=== PATIENT | female | born 1995 | race Caucasian/White ===

== ENCOUNTER 2023-07-30 17:48 | Outpatient (CLI) | payer MEDICAID, SELFPAY ==
[2023-07-30 16:52] LABS: HCG Quant, Pregnancy 10 mIU/mL (1-3)
== END 2023-07-30 17:49 | disposition home or self-care (01) ==
LOC: LBO 17:49
PROVIDERS: Visit Provider Obstetrics & Gynecology
DX: Z32.01 Encounter for pregnancy test, result positive (principal)
CPT/HCPCS: 36415; 84702

== ENCOUNTER 2024-02-19 10:05 | Day surgery (SDC) | payer MEDICAID, SELFPAY ==
[2024-02-19] VITALS (28 sets, daily range): BP systolic 98–135; BP diastolic 46–86; PULSE 42–90; RESP 10–18; TEMP 36.2–36.5; O2SAT 94–100; BMI 31.8
--- NOTE | 2024-02-19 07:15 | W.PM.OP ---
Date of service: 02/19/24 Time of Service: 13:00 Operative Note Operative Note DATE OF PROCEDURE: 02/19/24 PRE-OP DIAGNOSIS: Left knee 1. Complex lateral meniscus tear POST-OP DIAGNOSIS: same PROCEDURE: Left knee 1. Partial lateral meniscectomy of discoid lateral meniscus, CPT #48727 SURGEON: Fredo Snider VENDING MACHINE COLLECTOR: None None ANESTHESIA TYPE: Local By Surgeon Refer to Anesthesia Record ESTIMATED BLOOD LOSS: 2 PATHOLOGY: none sent TOURNIQUET TIME: 0 COMPLICATIONS: None Patient was transported to: PACU Patient's condition: stable Indications: Please see complete medical record for details. Findings: Exam under anesthesia: Full range of motion, stable varus and valgus, no increased translation to anterior drawer or David, but somewhat abnormal feeling David exam. Arthroscopic findings: Moderate suprapatellar and anterior to lateral synovitis. Intact articular cartilage. Intact ACL. Intact medial compartment medial meniscus. Large displaced complex discoid lateral meniscus tear. Procedure Description: In the operating room, general anesthesia was induced. The patient was positioned supine on the operating room table. All bony prominences were well-padded. Preoperative antibiotics were administered. The knee was prepped and draped in the usual sterile fashion. The correct patient, procedure, and side of the procedure were all verified prior to incision. Exam under anesthesia was performed. 10 cc of 0.25% bupivacaine containing epinephrine was infiltrated about the planned anteromedial and anterolateral knee arthroscopy portals. An additional 10 cc was infiltrated about the medial and lateral compartments. The portals were established and a complete diagnostic arthroscopy was performed with relevant findings detailed above. The mechanical shaver was used to remove some inflamed synovium from the suprapatellar, patellofemoral, and anterior intercondylar spaces. The lateral meniscus was carefully inspected. It was highly abnormal and clearly of discoid pathology. Appeared to be subacute and could not be reduced from the intercondylar area much into the lateral compartment. There was abnormal thickening, intrasubstance tearing degeneration in the displaced portion of meniscus as well as obvious tearing separately more peripherally about the posterior horn and body. Various graspers were used to attempt to reduce some of the meniscus for potential repair, but it was highly abnormal and the majority thickened portion was removed in piecemeal using meniscal biters. Once a more normal-appearing meniscal C?shaped contour was established, the meniscus was again probed and reductions attempted, but the significant tearing more peripherally in the abnormal meniscal tissue was not really amenable to repair. The complex both horizontal and vertical component near the posterior horn body junction was rather peripheral and extend to about the capsular red zone. Carefully and sequentially the abnormal discoid meniscus as well as the established meniscal remnant were debrided of abnormal redundant and torn meniscal tissue to a more appropriate and stable margin. It was carefully contoured working alternating and viewing between the anterior medial and anterolateral portals as well as using the mechanical and torpedo jessie. The remnant was probed and stable margin, stable root, and no additional tearing. Care was taken to preserve as much meniscus tissue as reasonable. Under direct arthroscopic visualization an 18-gauge needle was passed into the knee from superolateral into the suprapatellar pouch. The knee was copiously irrigated with arthroscopic fluid until there was a clear effluent before being drained of all fluid. The anteromedial and anterolateral portals were closed in 3-0 Monocryl in a buried interrupted fashion. An additional 10 cc of 0.2 FiberTape bupivacaine containing epinephrine was infiltrated about the lateral knee. Mastisol, Steri-Strips, and 4 x 4 gauze were applied over the incisions. The knee was then wrapped gently with an OLEGARIO comressive bandage. The patient awoke from anesthesia without complication and was transferred to the recovery room in a stable condition.
--- NOTE | 2024-02-19 07:24 | PDOC.DSDIS_ITS ---
Date of service: 02/19/24 Time of Service: 16:00 Discharge Plan Disposition Patient Disposition: Home Condition: Stable Discharge Details Attending Provider: Fredo Snider Home Meds and New Rx's Prescriptions: New naproxen 250 mg tablet 250 - 500 mg PO BID PRN (Reason: Moderate pain) Qty: 40 0RF aspirin 81 mg tablet,delayed release (DR/EC) 81 mg PO DAILY 14 Days Qty: 14 0RF oxycodone 5 mg tablet 5 - 10 mg PO Q4H PRN (Reason: Moderate to severe pain) Qty: 18 0RF Discharge Instructions Additional Instructions: Surgery: Left knee arthroscopy with partial lateral meniscectomy of discoid meniscus tear Activity: Weightbearing as tolerated. Left lower extremity elevation to minimize swelling and discomfort. Advance range of motion as comfort allows. No knee brace or crutches needed. Recommend avoiding sports, pivoting, and squatting for 6-8 weeks. A physical therapy prescription will be sent electronically to start in 2 to 3 weeks. Return to work guidelines: Sedentary/desk job preferred for about 2-3 weeks (or, at least allow occasional breaks throughout the shift to sit/rest). Prescriptions: Aspirin 81 mg take 1 daily to prevent a blood clot for 14 days, begin tomorrow morning Naproxen 250 mg take 1-2 every 12 hours with a meal as needed for moderate pain Oxycodone 5 mg take 1-2 every 4-6 hours as needed for severe pain You may use [id number] Tylenol (acetaminophen) as needed for mild pain. These pain medications may be taken all at once or in different combinations as needed. Also, recommend Colace (docusate) as a stool softener as surgery and pain medicine cause constipation. You may try [id number] diphenhydramine (Benadryl) 25-50 mg nightly as a sleep aid Dressings: Leave dressing in place for 3 days. May then remove and leave open to air or cover incisions with Band-Aids. Leave the sticky Steri-Strips in place until they fall off or remove them after you shower. May shower after 5 days. Follow-up: 10-[address] Snider You may take off the leg compression stockings this evening at home. You may also leave them on a few days longer if you have a history of leg swelling or edema. Let us know right away if you develop any redness, drainage, fevers, chest pain, or trouble breathing. Do not drink alcohol or drive for at least 24 hours after anesthesia. Please call the office during business hours with any questions or concerns. Stand Alone Forms: Anesthesia Discharge Inst., Crutch Training Instructions, Paulina Og (DSU) Referrals: Fredo Snider MD [ [facility] STAFF PHYSICIAN] - 03/02/24 2:15 pm Discharge Orders Discharge Orders: Discharge Order (Routine); Ordered 02/19/24 Ordered By: Abel Yanes DS: Diagnosis Discharge Diagnosis (1) Acute lateral meniscus tear of left knee: Status: Acute
[2024-02-19] MEDS: Lactated Ringers 1,000 ML 30 ML IV (11:30)
--- NOTE | 2024-02-19 11:36 | W.ANESPRE ---
General Info Date of Service Date Performed: 02/19/24 Height: 5 ft 6 in Weight: 89.6 kg Body Mass Index (BMI): 31.8 Surgical Procedure: Operation Date: 02/19/24 13:10 Proposed Procedure Side Surgeon p Knee Arthroscopy w Lateral Meniscus Repair, Intercondylar Bone Marrow Stimulation vs Partial Lateral Meniscectomy Left Frdeo Snider MD Meds Allergies and Home Medications Allergies Allergy/AdvReac Type Severity Reaction Status Date / Time No Known Allergies Allergy Verified 02/19/24 10:58 Home Medication ?Medication ?Instructions ?Recorded aspirin 81 mg tablet,delayed 81 mg PO DAILY Prevent blood clot 02/19/24 release 14 days #14 tabs naproxen 250 mg tablet 250 - 500 mg (1 - 2 x 250 mg) PO 02/19/24 BID PRN Moderate pain #40 tabs oxycodone 5 mg tablet 5 - 10 mg (1 - 2 x 5 mg) PO Q4H 02/19/24 PRN Moderate to severe pain #18 tabs Current Visit Medications: Current Medications Generic Name Dose Route Start Last Admin Trade Name Freq PRN Reason Stop Dose Admin Ringer's Solution 1,000 mls @ 30 mls/hr 02/19/24 06:00 02/19/24 11:30 IV 02/19/24 23:59 30 mls/hr INFUSION KUNAL Administration Cefazolin Sodium/Dextrose 2 gm in 50 mls @ 100 mls/hr 02/19/24 06:00 Ancef Duplex IVPB 02/19/24 23:59 PREOP KUNAL Tranexamic Acid/Sodium Chloride 1,000 mg in 100 mls @ 600 mls/hr 02/19/24 06:00 IVPB 02/19/24 23:59 PREOP KUNAL IV Miscellaneous Supplies 1 each 02/19/24 06:00 Iv Access IV 02/19/24 23:59 DIRECTED KUNAL Oxycodone HCl 0 mg 02/19/24 07:18 Oxycodone 5 Mg Tab PO 03/20/24 07:17 Q3H PRN PRN Pain Sodium Chloride 0 ml 02/19/24 06:00 Normal Saline Flush 10 Ml Syr IV 02/19/24 23:59 PRN PRN Sodium Chloride 0 ml 02/19/24 06:00 Normal Saline 10 Ml Vial IJ 02/19/24 23:59 DIRECTED PRN Sterile Water 0 ml 02/19/24 06:00 Water,Injection,Sterile 10 Ml Vial IJ 02/19/24 23:59 DIRECTED PRN PFSH Active Problems Active Problems: Problem Status Onset Code Acute lateral meniscus tear of left knee Acute S83.282A Medical History Medical History (Updated 02/18/24 @ 12:57 by Ramiro Bruner) Irregular heartbeat In question-states she has had episodes of passing out since she was 15, states her PCP just barely sent out a referral Syncope Depression Eating disorder Medical History Comments:: 02/19/24: pt had a respiratory illness 4 weeks ago, feels ok now, has residual cough. Surgical History Surgical History History of section 07/30/23- pt reports for arrest of dilation Tobacco Smoking/Tobacco Use Status: Current every day Tobacco Type: e-cigarettes Alcohol Alcohol Intake: current Alcohol intake frequency: holidays/special occasions only Alcohol type: wine Substance Use Substance use: Daily Substance use type: marijuana Details: 02/19/24 :smoked marijuana today at 06:30am and used e-vape Prental History History 1 Para 1 Hx # Term Pregnancies 1 Multiple births Hx # Pregnancies Ectopic pregnancies AB induced Hx Number of Living Children 1 AB spontaneous Past Pregnancies Del. Date GA/Weeks # Preg Succ Route Wgt Sex Labor Lgth Anesthesia Location [facility] 11/29/22 Yes 3061.748 g Male [facility] Delivery Date: 11/29/22 Last Updated by: ANJALI Oconnor Vital Signs and Lab Results Vital Signs Most Recent Vital Signs in EMR: Most Recent Vital Signs Temp Pulse Resp BP Pulse Ox 36.5 C 68 16 118/83 99 02/19/24 10:36 02/19/24 10:36 02/19/24 10:36 02/19/24 10:36 02/19/24 10:36 Point of Care Results Point of Care Results: POC- Test(urine) Negative 02/19/24 10:36 Lab Results Blood Type / Crossmatch: No Data to Display Complete Blood Count: No Data to Display Complete Metabolic Panel: No Data to Display Liver Function Panel: No Data to Display Coagulation Panel: No Data to Display Cardiac Panel: No Data to Display Arterial Blood Gas: No Data to Display Venous Blood Gas: No Data to Display Pancreas Panel: No Data to Display Thyroid Panel: No Data to Display Infectious Disease: No Data to Display Blood Cultures: No Data to Display Toxicology Panel: No Data to Display Panel: No Data to Display Anesthesia Assessment and Plan Anesthesia History Personal History: No History of Anesthesia Complications Family History: No Family History of Anesthesia Complications Exercise Tolerance Exercise Tolerance: Metabolic Equivalents>4 Pertinent Negatives Pertinent Negatives: No Symptoms of GERD, No Major Cardiovascular Symptoms or Complaints, No Major Pulmonary Symptoms or Complaints and No History of CVA/TIA Cardiac & Pulmonary Exam Cardiac Exam: Normal S1/S2 Heart Sounds Pulmonary Exam: Clear Bilateral Breath Sounds Implantable Cardiac Device Does patient have a Pacemaker or an ICD?: No Airway Exam Known Difficult Airway: No Mallampati Class: 1 Mouth Opening: Normal (> 3cm) Thyromental Distance: Greater than 3 cm Neck Range of Motion: Full ROM Neck Circumference: Normal Teeth Condition: Normal Dentition ASA Classification ASA Score: ASA 2 Emergency Case?: No NPO Status NPO Status: NPO Clears >2 hours, Solids >8 hours Status Status: Negative HCG Anesthesia Plan Resuscitation Status: Full Code Anesthesia Technique: General Anesthesia Airway Planned: LMA Monitors Used: Standard Monitors Preoperative Comments:: Significant PMH: Depression, Irregular heart beat - syncope - has yet to have completed work-up. Sinus rhythm DOS
[2024-02-19] MEDS: ceFAZolin 2 GM/50 ML BAG IVPB (13:38)
[2024-02-19] MEDS: TRANEXAMIC ACID/SOD. CHL. 1,000 MG/100 ML BAG 600 MG IVPB (13:41)
[2024-02-19] MEDS: Bupivacaine 0.25% Pres-Free W/EPI 30 ML VIAL (14:20)
[2024-02-19] MEDS: HYDROmorphone 1 MG/ML SYR IVP ×2 (15:26→15:37)
--- NOTE | 2024-02-19 15:27 | W.ANESPOSTOP ---
Postoperative Evaluation Date, Time and Location Date Performed: 02/19/24 Time Performed: 15:27 Patient Location: PACU Vital Signs Most Recent Imported Vital Signs: Most Recent Vital Signs Temp Pulse Resp BP Pulse Ox 36.3 C L 64 12 103/62 100 02/19/24 15:14 02/19/24 15:14 02/19/24 15:15 02/19/24 15:14 02/19/24 15:15 Pain Score Most Recent Pain Score: Most Recent Pain Score Pain Level 0 02/19/24 10:36 Assessment Mental Status: Arousable with meaningful communication Airway and Respiratory Function: Patent airway with normal (patient baseline) respiratory exam Cardiovascular Function: Hemodynamically Stable Hydration Status: Adequately Hydrated Nausea & Vomiting: No Nausea or Vomiting Pain: Pain is Moderate or Severe Postoperative Pain Management: Pain being addressed with medication (Reports verbally 7/10) Peripheral Nerve Block: Patient did not receive a nerve block
[2024-02-19] MEDS: Acetaminophen 500 MG TAB 1000 MG PO (16:34)
[2024-02-19] MEDS: Ketorolac 15 MG/ML VIAL IVP (16:36)
== END 2024-02-19 17:10 | disposition home or self-care (01) ==
LOC: SUR 10:05
PROVIDERS: Visit Provider Student in an Organized Health Care Education/Training Program
PROC: (CPT 29881; principal; 2024-02-19 13:00)
DX: S83.282A Other tear of lateral meniscus, current injury, left knee, initial encounter (principal); X58.XXXA Exposure to other specified factors, initial encounter
CPT/HCPCS: 29881; 81025; J0690; J1100; J1171; J1885; J2270; J2405; J2704; J3010

== ENCOUNTER 2024-03-10 14:33 | Outpatient (CLI) | payer MEDICAID, SELFPAY ==
--- NOTE | 2024-03-10 11:15 | DI.RAD_ITS ---
Exam(s) XR KNEE LT 3V AP,LAT,LINDEN EXAM: XR KNEE LT 3V AP,LAT,LINDEN CLINICAL HISTORY: LEFT KNEE INJURY. TECHNIQUE: 2D digital imaging was performed. Three views. COMPARISON: CR XR KNEE 3V LT from 12/03/2023 MR MR KNEE LT WO CONTRAST from 12/22/2023 FINDINGS: BONES: No acute fracture is present. No bony destructive lesion is seen. 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 JOINTS: The knee is normally aligned. No joint effusion is seen. SOFT TISSUE: Normal. IMPRESSION: No acute abnormality DATA REPOSITORY: RADIATION DOSE DELIVERED:
== END 2024-03-10 14:34 | disposition home or self-care (01) ==
LOC: DIORS 14:34
PROVIDERS: Visit Provider Physician Assistant
DX: S83.282A Other tear of lateral meniscus, current injury, left knee, initial encounter (principal); X58.XXXA Exposure to other specified factors, initial encounter
CPT/HCPCS: 73562